=== PATIENT | male | born 1980 | race Caucasian/White ===

== ENCOUNTER 2020-02-14 13:31 | Emergency (ER) | payer BC ==
[~2020-02-14] VITALS: Ht 190.5 cm; Wt 127.3 kg
--- NOTE | 2020-02-14 14:18 | REP ---
INDICATION: trauma, elevated patella, effusion. COMPARISON: None. TECHNIQUE: Four views. No sunrise view presented. FINDINGS: Four views of the left knee demonstrate patella alayna. There is irregular soft tissue swelling be niece the patella on lateral radiograph along the course of the patellar tendon. The findings are very suggestive of patellar tendon rupture. There is non articular spurring at the inferior pole of the patella at the patellar tendon insertion. No patellar fracture or other knee fracture seen.. . There are 2 tiny calcific densities along the distribution of the patellar tendon on the lateral radiograph which may be opaque debris. No other evidence of opaque foreign body.. IMPRESSION: Patella Alayna with inferior pole patellar spurring suggesting chronic patellar tendinitis. There is irregular soft tissue swelling and distortion in the infrapatellar soft tissues. Findings very suspicious for patellar tendon rupture. Question open. No fracture seen.. <Electronically signed by [place] Jerry > 02/14/20 [id number]
[2020-02-14 15:27] VITALS: BP 157/92
== END 2020-02-14 17:00 | disposition home or self-care (01) ==
LOC: M ED 14:19
DX: S76.112A Strain of left quadriceps muscle, fascia and tendon, initial encounter (principal); W01.0XXA Fall on same level from slipping, tripping and stumbling without subsequent striking against object, initial encounter; Y92.007 Garden or yard of unspecified non-institutional (private) residence as the place of occurrence of the external cause; Y93.9 Activity, unspecified; Y99.9 Unspecified external cause status; M25.762 Osteophyte, left knee

== ENCOUNTER 2020-02-15 14:24 | Day surgery (SDC) | payer BC ==
[~2020-02-15] VITALS: Ht 188 cm; Wt 127.0 kg
[2020-02-15] MEDS ORDERED: ceFAZolin SOD 2 GM in IV 1 EA IV ONE (14:45)
[2020-02-15] MEDS ORDERED: SCOPOLAMINE 1MG TRANSDERMAL PATCH TOP ONE (16:15)
[2020-02-15] MEDS ORDERED: LR 1,000 ML IV ONE (16:15)
[2020-02-15] MEDS ORDERED: ceFAZolin 1GM VIAL (J0690 PER 500MG) As Ordered ONE (16:35)
[2020-02-15] MEDS ORDERED: propofoL 200 MG/20 ML VIAL As Ordered ONE (16:38)
[2020-02-15] MEDS ORDERED: LIDOCAINE 2% 100MG/5ML SDV (FOR ANES.) As Ordered ONE (16:38)
[2020-02-15] MEDS ORDERED: KETOROLAC 60MG 2ML VIAL As Ordered ONE (16:38)
[2020-02-15] MEDS ORDERED: ACETAMINOPHEN 1000MG 100ML IV BTL (OFIRMEV) (J0131 PER 10MG) As Ordered ONE (16:38)
[2020-02-15] MEDS ORDERED: dexameTHASONE 4 MG/ML 1ML VIAL (J1100 PER 1MG) As Ordered ONE (16:38)
[2020-02-15] MEDS ORDERED: MIDAZOLAM INJ 2MG/2ML VIAL (J2250 PER 1MG) As Ordered ONE (16:41)
[2020-02-15] MEDS ORDERED: fentaNYL 100 MCG/2 ML INJECTION (J3010) As Ordered ONE ×3 (16:41→18:31)
[2020-02-15] MEDS ORDERED: HYDROmorphone HCL 2 MG/ML 1ML VIAL (J1170) As Ordered ONE (17:04)
[2020-02-15] MEDS ORDERED: METOCLOPRAMIDE INJ 10MG/2ML VIAL (J2765 PER 1) As Ordered ONE (17:08)
[2020-02-15] MEDS ORDERED: ONDANSETRON 4MG/2ML VIAL As Ordered ONE (17:08)
[2020-02-15] MEDS ORDERED: LR 1,000 ML IV SCH ×2 (18:45→20:00)
[2020-02-15] MEDS ORDERED: fentaNYL 100 MCG/2 ML INJECTION (J3010) IV PRN (18:45)
[2020-02-15] MEDS ORDERED: METOCLOPRAMIDE INJ 10MG/2ML VIAL (J2765 PER 1) IV PRN (18:45)
[2020-02-15] MEDS ORDERED: ONDANSETRON 4MG/2ML VIAL IV PRN (18:45)
[2020-02-15] MEDS: PERCOCET 5MG/325MG TAB PO PRN ×2 (18:47→19:23)
[2020-02-15] MEDS ORDERED: MORPHINE 2 MG/ML 1ML VIAL (J2270) IV PRN (20:00)
[2020-02-15] MEDS ORDERED: NORCO, ANEXSIA 5/325MG TABLET (HYDROcodone/ACETAMINOPHEN) PO PRN ×2 (20:00)
[2020-02-15 20:50] VITALS: BP 140/89
--- NOTE | 2020-02-16 10:18 | RO ---
OPERATIVE NOTE DATE OF OPERATION: 02/15/2020 PREOPERATIVE DIAGNOSIS: Left knee patellar tendon rupture. POSTOPERATIVE DIAGNOSIS: Left knee patellar tendon rupture. PROCEDURE: Left knee patellar tendon disruption repair. SURGEON: Dylan Dennison MD ANESTHESIA: General with laryngeal mask anesthetic. COMPLICATIONS: None. ESTIMATED BLOOD LOSS: 50 mL. SPECIMENS: None. FINDINGS: He had complete disruption of basically the patellar tendon at the insertion of the inferior pole of the patella. There was complete disruption including retinaculum especially medially. PROCEDURE: Antibiotics were given intravenously preoperatively. Successful general laryngeal mask anesthetic was established. No tourniquet was utilized. The left lower extremity was carefully prepped and draped in usual sterile fashion. Examination under anesthesia revealed stable knee to varus/valgus stress testing. Longitudinal incision was made anteriorly. Bovie cautery was used to coagulate crossing vessels down to the deep superficial tissues to the deep fascia and the fascia and paratenon divided, underlying the zone of injury and there was clear disruption of the patellar tendon. This extended medially and laterally but mainly medially along the retinaculum down into the joint. The joint was evacuated and irrigated. I carefully dissected soft tissue planes and identified the anatomy of the injury. There were some superficial fascial tissues attached to the patella. The undersurface of this was exposed to reveal the inferior pole of the patella and rongeur was used to freshen the inferior pole of the patella. Once that had been done I used 2.5 drill to pass three drill holes from distal to proximal exiting on the superior proximal surface of the patella and I cut down with the Bovie to expose the drill holes on the superficial surface of the patella. At this point I used the Cottony Deknatel suture to pass a locking Krackow fashion through one limb down the middle of the patellar tendon and up the medial aspect of the tendon exiting at the proximal end of the patellar tendon and then had a second #1 Cottony Deknatel suture used in similar fashion down the middle of the patellar tendon in locking Krackow fashion and then back up the lateral side of the patellar tendon, again exiting at the proximal end of the patellar tendon. I passed the lateral limb through the lateral drill hole using a [employer] suture passer to pass a loop of passing suture first made of #1 PDS suture and then that suture was passed up through that hole exiting superiorly on the patella. The two middle strands were then in similar fashion passed up to the middle hole by first passing the passing suture with Hewson suture passer and then passing the sutures out through that hole and then the final medial limb was passed up through the medial hole in similar fashion using the Hewson suture passer and loop of suture for passing suture. I then pulled snugly on the patellar tendon after irrigating out the knee once again and downward pressure on the patella. I first tied the lateral sutures making sure there was no gap at the insertion point of the patellar tendon against the inferior pole of the patella and secured that. Prior to me tying this I did pull down on the other sutures medially and held them with a clamp in reduced position and once the lateral pair of sutures were tied then I tied the medial pair of sutures. This provided excellent firm fixation. I brought the knee through range of motion and there was no gapping even beyond 90 degrees of knee flexion. I then addressed the medial synovial capsular disruption and retinacular disruption using #1 PDS sutures medially in interrupted fashion. I then closed the retinaculum laterally as well with #1 PDS suture. I then did a [id number] repair of the deep fascia that overlay the patellar tendon anteriorly as a backup fixation using #1 PDS sutures. I irrigated again and closed the paratenon with interrupted 2-0 PDS sutures and then subdermal tissues were closed with interrupted 2-0 PDS sutures and skin was closed with sohan covered by AquaForm dressing and dry, sterile bulky dressing. He was then placed into knee immobilizer in full extension and awakened from general laryngeal mask anesthetic after having tolerated this procedure well and transferred to the recovery room in stable condition. There were no intraoperative complications.
== END 2020-02-15 21:00 | disposition home or self-care (01) ==
LOC: M SDC 14:24
PROVIDERS: ATTEND Orthopaedic Surgery
DX: S86.812A Strain of other muscle(s) and tendon(s) at lower leg level, left leg, initial encounter (principal); Y92.89 Other specified places as the place of occurrence of the external cause; Y93.9 Activity, unspecified; X58.XXXA Exposure to other specified factors, initial encounter; Y99.9 Unspecified external cause status
CPT/HCPCS: 27380; J0131; J0690; J1100; J1170; J1885; J2250; J2405; J2765; J3010; U0002